=== PATIENT | female | born 1950 | race Caucasian/White ===

== ENCOUNTER 2021-04-25 17:45 | Outpatient (CLI) | payer MEDICARE, OTHER, SELFPAY ==
--- NOTE | 2021-04-25 14:30 | CYSPIN_PTH ---
PATIENT: MARLINE AJCOBS LOC: [facility] U#:[id number] AGE/SX: 70/F ROOM: RE04/25/[address]: Dr. Kerry Londono MD : 1950 BED: DIS: 04/25/2021 SPEC #: [id number] RECD: 04/26/21 07:03 STATUS: EZEQUIEL JONES #: [id number] BRUNA: 04/25/21 14:[address]: Kerry Londono DEPT: CYTOLOGY RECD BY: Radha Aguilar Tissues: Urine Procedures: Pap Stain (control) Special Stain Group II Cytospin Fluid HEADER OPERATION: Not noted PRE-OP DIAGNOSIS: Gross hematuria TISSUE SUBMITTED: Urine for cytology DIAGNOSIS CYTOLOGY Urine for cytology (cytospin): Negative for malignant cells. See comment. AM:mayra 04/26/2021 COMMENT The specimen primarily contains squamous epithelial cells. Clinical correlation is suggested. CYTOLOGY STUDY Slides are reviewed. CYTOLOGY GROSS Received is 60 ml of dark gold cloudy fluid labeled with the patient's name and and designated per the requisition as urine. Submitted for cytology preparation. / mayra 04/26/2021 TC:5 CPT: 75827
[2021-04-25 17:47] LABS: Cytology, Body Fluid / CSF SEE PATHOLOGY REPORT
== END 2021-04-25 23:59 | disposition short-term general hospital (02) ==
PROVIDERS: Visit Provider Urology
DX: R31.0 Gross hematuria (principal)
CPT/HCPCS: 88108; 88313